=== PATIENT | male | born 1955 | race African-American/Black ===

== ENCOUNTER 2023-05-03 08:51 | Inpatient (IN) | payer MEDICARE, OTHER ==
[~2023-05-03] VITALS: Ht 175.3 cm; Wt 58.8 kg
[~2023-05-03 08:51] MED LIST: BUPR-72 PO; CEPH-558 PO; FAMO20 PO; FERR324T23 PO; QUET25TA PO; SENN-277 PO; SILD25 PO; TAMS-1 PO
[2023-05-03 09:15] LABS: BASOPHILS % (AUTO) 0.3 % (0.0-2.0); EOSINOPHILS % (AUTO) 0.1 % (1.0-6.0); HEMATOCRIT 39.2 % (41-53); HEMOGLOBIN 12.7 g/dL (13.5-17.5); LYMPHOCYTES # (AUTO) 1.2 K/uL (1.0-4.8); LYMPHOCYTES % (AUTO) 8.5 % (22.0-44.0); MEAN CORPUSCULAR HEMOGLOBIN 28.8 pg (26.0-34.0); MEAN CORPUSCULAR HGB CONC 32.5 G/dL (31.0-37.0); MEAN CORPUSCULAR VOLUME 89 fL (80-100); MONOCYTES # (AUTO) 1.6 K/uL (0.1-1.0); MONOCYTES % (AUTO) 11.8 % (2.0-9.0); NEUTROPHILS # (AUTO) 10.9 K/uL (1.8-7.7); NEUTROPHILS % (AUTO) 79.3 % (40.0-70.0); PLATELET COUNT (AUTO) 457 K/uL (150-450); RED BLOOD CELL COUNT(AUTO) 4.42 MIL/uL (4.50-5.90); RED CELL DISTRIBUTION WIDTH 14.4 % (11.5-14.5); WHITE BLOOD COUNT (AUTO) 13.7 K/uL (4.5-11.0)
[2023-05-03] MEDS ORDERED: SODIUM CHLORIDE 0.9% 2,000 ML IV ONE (09:15)
[2023-05-03 09:20] LABS: COVID AG,FIA SOURCE NASAL SWAB
[2023-05-03 09:24] LABS: ANION GAP 8 mmol/L (8-16); CALCIUM, TOTAL 8.6 mg/dL (8.8-10.5); CARBON DIOXIDE 28 mmol/L (22-29); CHLORIDE 101 mmol/L (98-107); CREATININE 0.87 mg/dL (0.60-1.30); GLOMERULAR FILTR. RATE CALC > 60 mL/min (>60); GLUCOSE,RANDOM 136 mg/dL (70-110); POTASSIUM 3.2 mmol/L (3.5-5.1); SODIUM SERUM 137 mmol/L (136-145); UREA NITROGEN, BLOOD 8 mg/dL (7-18)
[2023-05-03 09:30] LABS: ALANINE AMINOTRANSFERASE 31 U/L (12-78); ALBUMIN 2.4 g/dL (3.4-5.0); ALKALINE PHOSPHATASE 115 U/L (46-116); ASPARTATE AMINOTRANSFERASE 19 U/L (15-37); BILIRUBIN,TOTAL 0.9 mg/dL (0.1-1.0); LIPASE 18 U/L (16-77); TOTAL PROTEIN, SERUM 6.9 g/dL (6.4-8.2)
[2023-05-03 09:31] LABS: ALCOHOL, BLOOD (SERUM) < 3 mg/dL (0-10)
[2023-05-03 09:32] LABS: TROPONIN I-HIGH SENSITIVITY 8 ng/L (<76)
[2023-05-03 09:37] LABS: B-TYPE NATRIURETIC PEPTIDE 33 pg/mL (0-100)
[2023-05-03 09:43] LABS: SARS-COV2 (COVID) ANTIGEN,FIA Negative (Negative)
[2023-05-03 09:49] LABS: AMMONIA < 10 umol/L (11-32)
[2023-05-03] MEDS ORDERED: AZITHROMYCIN 500 MG/NS 250 ML IV ONE (11:30)
[2023-05-03] MEDS ORDERED: CefTRIAXone 1 GM/DEXTROSE 50 ML IV ONE (11:30)
[2023-05-03] MEDS ORDERED: POTASSIUM CHLORIDE 20 MEQ ER TABLET PO ONE ×2 (14:15)
[2023-05-03 14:30] VITALS: BP 134/76; PULSE 77; RESP 17; TEMP 99.5
[2023-05-03] MEDS ORDERED: ALBUTEROL SULFATE 2.5 MG/0.5 ML NEB SOLUTION NEB PRN (18:30)
[2023-05-03] MEDS ORDERED: MAGNESIUM HYDROXIDE SUSPENSION 30 ML UDCUP PO PRN (18:30)
[2023-05-03] MEDS ORDERED: IPRATROPIUM BROMIDE 0.5 MG/2.5 ML NEB SOLUTION NEB PRN (18:30)
[2023-05-03] MEDS ORDERED: ACETAMINOPHEN 325 MG TABLET PO PRN (18:30)
[2023-05-03] MEDS ORDERED: MORPHINE SULFATE 2 MG/ML SYRINGE IVP PRN (18:30)
[2023-05-03] MEDS ORDERED: BISACODYL 10 MG RECTAL RECTAL SUPPOSITORY PR PRN (18:30)
[2023-05-03] MEDS ORDERED: ONDANSETRON HCL 4 MG/2 ML VIAL IVP PRN (18:30)
[2023-05-03 20:10] VITALS: BP 123/69; PULSE 100; RESP 20; TEMP 99.3
[2023-05-03] MEDS ORDERED: SODIUM CHLORIDE 0.9% 250 ML IV ONE (20:20)
[2023-05-03] MEDS: LEVOFLOXACIN 750 MG/D5% WATER 150 ML IV SCH (20:23)
[2023-05-03] MEDS: DOCUSATE SODIUM 100 MG CAPSULE PO SCH (20:30)
[2023-05-03] MEDS: HEPARIN SODIUM,PORCINE 5,000 UNITS/ML VIAL SQ SCH (23:30)
[2023-05-04] MEDS: HYDROCODONE/ACETAMINOPHEN 5-325 MG TABLET PO PRN (02:06)
[2023-05-04 04:49] VITALS: BP 134/59; PULSE 102; RESP 20; TEMP 99.1
[2023-05-04 07:15] VITALS: BP 129/83; PULSE 87; RESP 18; TEMP 98.6
[2023-05-04 07:22] LABS: BASOPHILS % (AUTO) 0.8 % (0.0-2.0); EOSINOPHILS % (AUTO) 0.4 % (1.0-6.0); HEMATOCRIT 37.1 % (41-53); HEMOGLOBIN 12.3 g/dL (13.5-17.5); LYMPHOCYTES # (AUTO) 1.3 K/uL (1.0-4.8); LYMPHOCYTES % (AUTO) 8.8 % (22.0-44.0); MEAN CORPUSCULAR VOLUME 88 fL (80-100); MONOCYTES # (AUTO) 1.7 K/uL (0.1-1.0); MONOCYTES % (AUTO) 11.8 % (2.0-9.0); NEUTROPHILS # (AUTO) 11.3 K/uL (1.8-7.7); NEUTROPHILS % (AUTO) 78.2 % (40.0-70.0); PLATELET COUNT (AUTO) 487 K/uL (150-450); RED BLOOD CELL COUNT(AUTO) 4.23 MIL/uL (4.50-5.90); RED CELL DISTRIBUTION WIDTH 14.3 % (11.5-14.5); WHITE BLOOD COUNT (AUTO) 14.4 K/uL (4.5-11.0)
[2023-05-04 07:30] LABS: ANION GAP 9 mmol/L (8-16); CALCIUM, TOTAL 8.6 mg/dL (8.8-10.5); CARBON DIOXIDE 25 mmol/L (22-29); CHLORIDE 105 mmol/L (98-107); CREATININE 0.89 mg/dL (0.60-1.30); GLOMERULAR FILTR. RATE CALC > 60 mL/min (>60); GLUCOSE,RANDOM 158 mg/dL (70-110); POTASSIUM 3.4 mmol/L (3.5-5.1); SODIUM SERUM 139 mmol/L (136-145); UREA NITROGEN, BLOOD 8 mg/dL (7-18)
[2023-05-04] MEDS: PANTOPRAZOLE SODIUM 40 MG DR TABLET PO SCH (08:00)
[2023-05-04] MEDS: HEPARIN SODIUM,PORCINE 5,000 UNITS/ML VIAL SQ SCH ×3 (08:00→23:00)
[2023-05-04] MEDS: DOCUSATE SODIUM 100 MG CAPSULE PO SCH ×2 (08:04→20:29)
[2023-05-04] MEDS: DOXYCYCLINE HYCLATE 100 MG TABLET PO SCH ×2 (10:25→20:26)
[2023-05-04] MEDS: NICOTINE 14 MG/24 HOUR PATCH TD SCH (13:27)
[2023-05-04 15:29] VITALS: BP 142/80; PULSE 92; RESP 18; TEMP 98
[2023-05-04] MEDS: LEVOFLOXACIN 750 MG/D5% WATER 150 ML IV SCH (18:28)
[2023-05-04 19:54] VITALS: BP 144/69; PULSE 100; RESP 20; TEMP 100.5
[2023-05-04] MEDS: ZOLPIDEM TARTRATE 5 MG TABLET PO PRN (20:26)
[2023-05-05 03:48] VITALS: BP 142/86; PULSE 82; RESP 19; TEMP 99.4
[2023-05-05 07:20] VITALS: BP 144/79; PULSE 88; RESP 19; TEMP 99.1
[2023-05-05 08:07] LABS: BASOPHILS % (AUTO) 0.9 % (0.0-2.0); HEMATOCRIT 36.4 % (41-53); HEMOGLOBIN 11.8 g/dL (13.5-17.5); LYMPHOCYTES # (AUTO) 1.2 K/uL (1.0-4.8); LYMPHOCYTES % (AUTO) 9.3 % (22.0-44.0); MEAN CORPUSCULAR HEMOGLOBIN 28.9 pg (26.0-34.0); MEAN CORPUSCULAR HGB CONC 32.5 G/dL (31.0-37.0); MEAN CORPUSCULAR VOLUME 89 fL (80-100); MONOCYTES # (AUTO) 1.5 K/uL (0.1-1.0); MONOCYTES % (AUTO) 11.7 % (2.0-9.0); NEUTROPHILS # (AUTO) 10.1 K/uL (1.8-7.7); NEUTROPHILS % (AUTO) 77.1 % (40.0-70.0); PLATELET COUNT (AUTO) 409 K/uL (150-450); RED BLOOD CELL COUNT(AUTO) 4.09 MIL/uL (4.50-5.90); RED CELL DISTRIBUTION WIDTH 14.3 % (11.5-14.5); WHITE BLOOD COUNT (AUTO) 13.1 K/uL (4.5-11.0)
[2023-05-05] MEDS: PANTOPRAZOLE SODIUM 40 MG DR TABLET PO SCH (08:25)
[2023-05-05] MEDS: DOCUSATE SODIUM 100 MG CAPSULE PO SCH ×2 (08:25→20:59)
[2023-05-05] MEDS: DOXYCYCLINE HYCLATE 100 MG TABLET PO SCH ×2 (08:25→21:01)
[2023-05-05] MEDS: HEPARIN SODIUM,PORCINE 5,000 UNITS/ML VIAL SQ SCH ×3 (08:25→23:16)
[2023-05-05] MEDS: NICOTINE 14 MG/24 HOUR PATCH TD SCH (08:34)
[2023-05-05 08:37] LABS: ANION GAP 9 mmol/L (8-16); CARBON DIOXIDE 25 mmol/L (22-29); CHLORIDE 104 mmol/L (98-107); CREATININE 0.78 mg/dL (0.60-1.30); GLOMERULAR FILTR. RATE CALC > 60 mL/min (>60); GLUCOSE,RANDOM 127 mg/dL (70-110); POTASSIUM 3.2 mmol/L (3.5-5.1); SODIUM SERUM 138 mmol/L (136-145); UREA NITROGEN, BLOOD 5 mg/dL (7-18)
[2023-05-05 08:53] LABS: CALCIUM, TOTAL 8.4 mg/dL (8.8-10.5)
[2023-05-05] MEDS ORDERED: POTASSIUM CHL 10 MEQ/WATER 50 ML IV PRN (10:45)
[2023-05-05] MEDS ORDERED: POTASSIUM CHLORIDE 20 MEQ ER TABLET PO PRN (10:45)
[2023-05-05 12:30] VITALS: BP 138/83; PULSE 87; RESP 20; TEMP 99
[2023-05-05 14:01] LABS: APPEARANCE,URINE CLEAR (CLEAR); BILIRUBIN,URINE NEGATIVE (NEGATIVE); COLOR,URINE LIGHT YELLOW (YELLOW); GLUCOSE, URINE (UA) NEGATIVE (NEGATIVE); KETONES,URINE NEGATIVE (NEGATIVE); LEUKOCYTE ESTERASE ,URINE NEGATIVE (NEGATIVE); NITRATE,URINE NEGATIVE (NEGATIVE); OCCULT BLOOD,URINE TRACE (NEGATIVE); PH,URINE 6.5 (5.0-8.0); PH,URINE DRUG SCREEN 6.5 (5.0-8.0); PROTEIN,URINE NEGATIVE (NEGATIVE); SPECIFIC GRAVITIY, URINE 1.009 (1.003-1.030); UROBILINOGEN,URINE <=1.0 mg/dL (<=1.0)
[2023-05-05 14:04] LABS: ALCOHOL, URINE DRUG SCREEN NEGATIVE (NEGATIVE); AMPHET/METH SCREEN,URINE NEGATIVE (NEGATIVE); BARBITURATE SCREEN, URINE NEGATIVE (NEGATIVE); BENZODIAZEPINES SCREEN,URINE NEGATIVE (NEGATIVE); CANNABINOID SCREEN,URINE NEGATIVE (NEGATIVE); COCAINE SCREEN,URINE NEGATIVE (NEGATIVE); METHADONE SCREEN, URINE NEGATIVE (NEGATIVE); OPIATE SCREEN,URINE POSITIVE (NEGATIVE); PHENCYCLIDINE SCREEN,URINE NEGATIVE (NEGATIVE)
[2023-05-05 14:23] LABS: BACTERIA,URINE None Seen /HPF (None Seen); RBC,URINE None Seen /HPF (0-2); SQUAMOUS EPITHELIAL CELL,UR None Seen /LPF (None Seen); WBC,URINE None Seen /HPF (0-5)
[2023-05-05] MEDS: LEVOFLOXACIN 750 MG/D5% WATER 150 ML IV SCH (18:23)
[2023-05-05 20:04] VITALS: BP 114/60; PULSE 82; RESP 18; TEMP 99.9
[2023-05-05] MEDS: HYDROCODONE/ACETAMINOPHEN 5-325 MG TABLET PO PRN (21:01)
[2023-05-05] MEDS: ZOLPIDEM TARTRATE 5 MG TABLET PO PRN (21:02)
[2023-05-06] MEDS: HYDROCODONE/ACETAMINOPHEN 5-325 MG TABLET PO PRN ×2 (06:49→20:00)
[2023-05-06 07:12] LABS: BASOPHILS % (AUTO) 0.5 % (0.0-2.0); EOSINOPHILS % (AUTO) 1.1 % (1.0-6.0); HEMATOCRIT 38.3 % (41-53); HEMOGLOBIN 12.6 g/dL (13.5-17.5); LYMPHOCYTES # (AUTO) 1.2 K/uL (1.0-4.8); LYMPHOCYTES % (AUTO) 8.5 % (22.0-44.0); MEAN CORPUSCULAR HEMOGLOBIN 29.2 pg (26.0-34.0); MEAN CORPUSCULAR VOLUME 89 fL (80-100); MONOCYTES # (AUTO) 1.5 K/uL (0.1-1.0); MONOCYTES % (AUTO) 9.9 % (2.0-9.0); NEUTROPHILS # (AUTO) 11.8 K/uL (1.8-7.7); PLATELET COUNT (AUTO) 542 K/uL (150-450); RED BLOOD CELL COUNT(AUTO) 4.33 MIL/uL (4.50-5.90); RED CELL DISTRIBUTION WIDTH 14.3 % (11.5-14.5); WHITE BLOOD COUNT (AUTO) 14.7 K/uL (4.5-11.0)
[2023-05-06 07:24] VITALS: BP 124/68; PULSE 84; RESP 18; TEMP 98.8
[2023-05-06 07:28] LABS: ANION GAP 9 mmol/L (8-16); CALCIUM, TOTAL 8.6 mg/dL (8.8-10.5); CARBON DIOXIDE 29 mmol/L (22-29); CHLORIDE 102 mmol/L (98-107); CREATININE 0.89 mg/dL (0.60-1.30); GLOMERULAR FILTR. RATE CALC > 60 mL/min (>60); GLUCOSE,RANDOM 131 mg/dL (70-110); POTASSIUM 3.6 mmol/L (3.5-5.1); SODIUM SERUM 140 mmol/L (136-145); UREA NITROGEN, BLOOD 8 mg/dL (7-18)
[2023-05-06] MEDS: NICOTINE 14 MG/24 HOUR PATCH TD SCH (08:25)
[2023-05-06] MEDS: PANTOPRAZOLE SODIUM 40 MG DR TABLET PO SCH (08:25)
[2023-05-06] MEDS: DOXYCYCLINE HYCLATE 100 MG TABLET PO SCH ×2 (08:25→20:00)
[2023-05-06] MEDS: DOCUSATE SODIUM 100 MG CAPSULE PO SCH ×3 (08:25→20:06)
[2023-05-06] MEDS: HEPARIN SODIUM,PORCINE 5,000 UNITS/ML VIAL SQ SCH ×3 (08:25→23:40)
[2023-05-06 15:00] VITALS: BP 124/73; PULSE 95; RESP 20; TEMP 98.7
[2023-05-06] MEDS: LEVOFLOXACIN 750 MG/D5% WATER 150 ML IV SCH (18:13)
[2023-05-06 19:51] VITALS: BP 121/75; PULSE 78; RESP 18; TEMP 98.8
[2023-05-06] MEDS: ZOLPIDEM TARTRATE 5 MG TABLET PO PRN (20:01)
[2023-05-07 05:35] VITALS: BP 136/87; PULSE 84; RESP 20; TEMP 99
[2023-05-07] MEDS: HYDROCODONE/ACETAMINOPHEN 5-325 MG TABLET PO PRN (05:49)
[2023-05-07 08:24] VITALS: PULSE 88; TEMP 97
[2023-05-07] MEDS: HEPARIN SODIUM,PORCINE 5,000 UNITS/ML VIAL SQ SCH (08:25)
[2023-05-07] MEDS: DOXYCYCLINE HYCLATE 100 MG TABLET PO SCH (08:26)
[2023-05-07] MEDS: NICOTINE 14 MG/24 HOUR PATCH TD SCH (08:26)
[2023-05-07] MEDS: PANTOPRAZOLE SODIUM 40 MG DR TABLET PO SCH (08:26)
[2023-05-07] MEDS: DOCUSATE SODIUM 100 MG CAPSULE PO SCH (08:28)
== END 2023-05-07 12:50 | disposition home or self-care (01) | DRG 193 ==
LOC: EMS 08:59 → EDBD 08:59 → 6N 12:00
PROVIDERS: ADMIT Internal Medicine; ATTEND Internal Medicine
DX: J18.9 Pneumonia, unspecified organism (principal); E43 Unspecified severe protein-calorie malnutrition; G93.41 Metabolic encephalopathy; Z68.1 Body mass index [BMI] 19.9 or less, adult; E87.6 Hypokalemia; E86.0 Dehydration; D64.9 Anemia, unspecified; F20.9 Schizophrenia, unspecified; Z87.891 Personal history of nicotine dependence; Z59.00 Homelessness unspecified; F19.10 Other psychoactive substance abuse, uncomplicated
CPT/HCPCS: 70450; 71045; 80048; 80053; 80307; 81001; 82140; 83690; 83880; 84132; 84484; 85025; 87040; 93005; 97116; 97161; 99285; G0480; J0456; J0696; J1644; J1956; J7050; 36415-L1; 36415-TC

== ENCOUNTER 2023-05-24 03:06 | Emergency (ER) | payer MEDICARE, OTHER ==
[~2023-05-24] VITALS: Ht 160 cm; Wt 68.2 kg
[2023-05-24 05:36] LABS: BASOPHILS % (AUTO) 0.6 % (0.0-2.0); EOSINOPHILS % (AUTO) 2.3 % (1.0-6.0); HEMOGLOBIN 13.6 g/dL (13.5-17.5); LYMPHOCYTES # (AUTO) 1.5 K/uL (1.0-4.8); LYMPHOCYTES % (AUTO) 15.4 % (22.0-44.0); MEAN CORPUSCULAR HEMOGLOBIN 28.8 pg (26.0-34.0); MEAN CORPUSCULAR HGB CONC 32.4 G/dL (31.0-37.0); MEAN CORPUSCULAR VOLUME 89 fL (80-100); MONOCYTES # (AUTO) 0.9 K/uL (0.1-1.0); NEUTROPHILS # (AUTO) 7.1 K/uL (1.8-7.7); NEUTROPHILS % (AUTO) 72.7 % (40.0-70.0); PLATELET COUNT (AUTO) 558 K/uL (150-450); RED BLOOD CELL COUNT(AUTO) 4.72 MIL/uL (4.50-5.90); RED CELL DISTRIBUTION WIDTH 14.8 % (11.5-14.5); WHITE BLOOD COUNT (AUTO) 9.7 K/uL (4.5-11.0)
[2023-05-24 05:39] LABS: ANION GAP 8 mmol/L (8-16); CALCIUM, TOTAL 9.1 mg/dL (8.8-10.5); CARBON DIOXIDE 29 mmol/L (22-29); CHLORIDE 102 mmol/L (98-107); CREATININE 0.87 mg/dL (0.60-1.30); GLOMERULAR FILTR. RATE CALC > 60 mL/min (>60); GLUCOSE,RANDOM 96 mg/dL (70-110); POTASSIUM 3.5 mmol/L (3.5-5.1); SODIUM SERUM 139 mmol/L (136-145); UREA NITROGEN, BLOOD 6 mg/dL (7-18)
[2023-05-24 05:44] LABS: ALANINE AMINOTRANSFERASE 26 U/L (12-78); ALBUMIN 3.1 g/dL (3.4-5.0); ALKALINE PHOSPHATASE 100 U/L (46-116); ASPARTATE AMINOTRANSFERASE 19 U/L (15-37); BILIRUBIN,TOTAL 0.3 mg/dL (0.1-1.0); TOTAL PROTEIN, SERUM 7.1 g/dL (6.4-8.2)
[2023-05-24 05:53] LABS: ALCOHOL, BLOOD (SERUM) 10 mg/dL (0-10)
[2023-05-24 06:23] VITALS: BP 135/86; PULSE 70; RESP 16; TEMP 98.3
== END 2023-05-24 07:59 | disposition home or self-care (01) ==
LOC: EMS 03:07
DX: S09.90XA Unspecified injury of head, initial encounter (principal); F17.210 Nicotine dependence, cigarettes, uncomplicated; Z98.890 Other specified postprocedural states; W22.8XXA Striking against or struck by other objects, initial encounter; Y93.89 Activity, other specified; Y92.89 Other specified places as the place of occurrence of the external cause; Y99.8 Other external cause status
CPT/HCPCS: 99284; 70450; 80053; 85025; 36415; 70486; 72125; G0480

== ENCOUNTER 2023-08-09 00:36 | Emergency (ER) | payer MEDICARE, OTHER ==
[~2023-08-09] VITALS: Ht 175.3 cm; Wt 65.9 kg
[~2023-08-09 00:36] MED LIST changes: +AMLO-257 PO; +BUPR-49 PO; +BUPR-50 PO; -BUPR-72 PO; -CEPH-558 PO; -FAMO20 PO; -FERR324T23 PO; +OLAN10TA74 PO; +OMEP20 PO; -QUET25TA PO; -SENN-277 PO; -SILD25 PO; -TAMS-1 PO
[2023-08-09 08:12] VITALS: BP 134/90; PULSE 76; RESP 18; TEMP 98.1
== END 2023-08-09 09:23 | disposition home or self-care (01) ==
LOC: EMS 00:38
DX: R46.2 Strange and inexplicable behavior (principal)
CPT/HCPCS: 99281; 99283

== ENCOUNTER 2024-09-03 15:31 | Emergency (ER) | payer OTHER ==
[~2024-09-03] VITALS: Ht 170.2 cm; Wt 68.2 kg
[~2024-09-03 15:31] MED LIST changes: -BUPR-49 PO; -BUPR-50 PO; +DULO-113 PO; +METF-1185 PO; +NALT50TA33 PO; +OLAN10TA26 PO; -OLAN10TA74 PO
[2024-09-03 15:33] VITALS: TEMP 98.7
[2024-09-03 18:38] LABS: APPEARANCE,URINE CLEAR (CLEAR); BILIRUBIN,URINE NEGATIVE (NEGATIVE); COLOR,URINE LIGHT YELLOW (YELLOW); GLUCOSE, URINE (UA) >=1000 mg/dL (NEGATIVE); KETONES,URINE NEGATIVE (NEGATIVE); LEUKOCYTE ESTERASE ,URINE NEGATIVE (NEGATIVE); NITRATE,URINE NEGATIVE (NEGATIVE); OCCULT BLOOD,URINE NEGATIVE (NEGATIVE); PH,URINE 6.5 (5.0-8.0); PH,URINE DRUG SCREEN 6.5 (5.0-8.0); PROTEIN,URINE TRACE mg/dL (NEGATIVE); SPECIFIC GRAVITIY, URINE 1.018 (1.003-1.030); UROBILINOGEN,URINE <=1.0 mg/dL (<=1.0)
[2024-09-03 18:46] LABS: ALCOHOL, URINE DRUG SCREEN NEGATIVE (NEGATIVE); AMPHET/METH SCREEN,URINE POSITIVE (NEGATIVE); BARBITURATE SCREEN, URINE NEGATIVE (NEGATIVE); BENZODIAZEPINES SCREEN,URINE NEGATIVE (NEGATIVE); CANNABINOID SCREEN,URINE NEGATIVE (NEGATIVE); COCAINE SCREEN,URINE NEGATIVE (NEGATIVE); METHADONE SCREEN, URINE NEGATIVE (NEGATIVE); OPIATE SCREEN,URINE NEGATIVE (NEGATIVE); PHENCYCLIDINE SCREEN,URINE NEGATIVE (NEGATIVE)
[2024-09-03 18:56] LABS: BACTERIA,URINE Rare /HPF (None Seen); RBC,URINE None Seen /HPF (0-2); WBC,URINE 0-2 /HPF (0-5)
[2024-09-03 19:14] VITALS: BP 153/112; PULSE 104; RESP 18; O2SAT 100
== END 2024-09-03 20:05 ==
LOC: EMS 15:31
DX: R30.0 Dysuria (principal); F20.9 Schizophrenia, unspecified; F17.210 Nicotine dependence, cigarettes, uncomplicated; F12.90 Cannabis use, unspecified, uncomplicated; F14.90 Cocaine use, unspecified, uncomplicated; F15.90 Other stimulant use, unspecified, uncomplicated; Z98.890 Other specified postprocedural states; Z79.899 Other long term (current) drug therapy
CPT/HCPCS: 80307; 81001; 81003; 99283